=== PATIENT | female | born 1950 | race Caucasian/White ===

== ENCOUNTER 2024-05-10 15:13 | Inpatient (IN) | payer MEDICARE ==
[2024-05-10] MEDS ORDERED: Sodium Chloride 0.9% 10 ML Syringe FLUSH PRN ×2 (15:36)
[2024-05-10] MEDS: Albuterol/Ipratropium 3.0-0.5 MG/3 ML Neb Soln NEB ONE (15:51)
[2024-05-10 15:55] LABS: BASOPHILS PERCENT AUTO 0.2 % (0.0-1.0); EOSINOPHILS PERCENT AUTO 1.6 % (1.0-3.0); HEMATOCRIT 49.6 % (37.0-47.0); HEMOGLOBIN 16.2 g/dL (12.0-16.0); LYMPHOCYTES PERCENT AUTO 25.1 % (20.5-50.1); MEAN CORPUSCULAR HEMOGLOBIN 29.7 pg (27.0-34.0); MEAN CORPUSCULAR HGB CONC 32.7 g/dL (33.0-35.0); MEAN CORPUSCULAR VOLUME 90.8 fL (80-100); MONOCYTES PERCENT AUTO 11.7 % (2-8); NEUTROPHILS PERCENT AUTO 61.4 % (42.2-75.2); PLATELET COUNT,PLT 177 10^3/uL (150-450); RED BLOOD CELL COUNT 5.46 10^6/uL (4.2-5.4); WHITE BLOOD CELL COUNT,WBC 6.3 10^3/uL (5.0-10.0)
[2024-05-10 16:18] LABS: A/G RATIO 1.1; ALANINE AMINOTRANSFERASE,ALT 24 U/L (14-59); ALBUMIN 3.6 g/dL (3.4-5.0); ALKALINE PHOSPHATASE 54 U/L (46-116); ASPARTATE AMNIOTRANSFERASE,AST 16 U/L (15-37); BILIRUBIN TOTAL 0.5 mg/dL (0.2-1.0); BLOOD UREA NITROGEN,BUN 20 mg/dL (7-18); CALCIUM 9.2 mg/dL (8.5-10.1); CARBON DIOXIDE,CO2 30 mmol/L (21-32); CHLORIDE,CL 103 mmol/L (98-107); ESTIMATED GFR 59 mL/min (>=60); GLUCOSE RANDOM 131 mg/dL (70-99); SODIUM,NA 142 mmol/L (136-145)
[2024-05-10 16:59] LABS: INR 1.8 (0.9-1.2); PROTHROMBIN TIME 18.1 SEC (9.0-12.0)
[2024-05-10] MEDS: Albuterol 0.083% 2.5 MG/3 ML Neb Soln NEB ONE (17:14)
[2024-05-10] MEDS ORDERED: Docusate Sodium 100 MG Cap PO PRN (19:23)
[2024-05-10] MEDS ORDERED: Acetaminophen 325 MG Tab PO PRN (19:23)
[2024-05-10 20:19] LABS: INR 1.9 (0.9-1.2); PROTHROMBIN TIME 18.7 SEC (9.0-12.0)
[2024-05-10] MEDS: Azithromycin 250 MG Tab PO SCH ×2 (21:14→21:19)
[2024-05-10] MEDS: methylPREDNISolone Sodium Succinate 40 MG/1 ML SDV IVPUSH SCH (21:14)
[2024-05-10] MEDS: Melatonin 3 MG Tab PO PRN (21:14)
[2024-05-10] MEDS: Warfarin 2 MG Tab PO ONE (21:15)
[2024-05-10] MEDS: Ramipril 5 MG Cap PO SCH (21:15)
[2024-05-11] MEDS: Albuterol/Ipratropium 3.0-0.5 MG/3 ML Neb Soln NEB SCH (00:27)
[2024-05-11] MEDS: Albuterol/Ipratropium 3.0-0.5 MG/3 ML Neb Soln NEB PRN (04:09)
[2024-05-11] MEDS: Warfarin 2 MG Tab PO ONE (14:15)
[2024-05-12 06:50] LABS: INR 3.5 (0.9-1.2); PROTHROMBIN TIME 33.7 SEC (9.0-12.0)
[2024-05-13 07:00] LABS: INR 3.6 (0.9-1.2); PROTHROMBIN TIME 34.4 SEC (9.0-12.0)
[2024-05-13] MEDS ORDERED: [UNRECOGNIZED DRUG - REMARK] PO SCH (14:00)
== END 2024-05-13 13:45 | disposition home or self-care (01) | DRG 189 ==
LOC: DL.ED 15:13 → DL.MS 18:39
PROVIDERS: ADMIT Internal Medicine; ATTEND Internal Medicine
DX: J96.01 Acute respiratory failure with hypoxia (principal); J44.1 Chronic obstructive pulmonary disease with (acute) exacerbation; Z88.8 Allergy status to other drugs, medicaments and biological substances; J98.11 Atelectasis; E78.00 Pure hypercholesterolemia, unspecified; M81.0 Age-related osteoporosis without current pathological fracture; I10 Essential (primary) hypertension; Z86.711 Personal history of pulmonary embolism; Z86.16 Personal history of COVID-19; Z79.899 Other long term (current) drug therapy; Z79.01 Long term (current) use of anticoagulants; Z87.891 Personal history of nicotine dependence
CPT/HCPCS: 36415; 71045; 80053; 84484; 85025; 85379; 85610; 87428; 93005; 99285; A9270 ×2; 93010; 94010; 94640; 99223; 99232; 99239; J2919

== ENCOUNTER 2024-06-18 13:15 | Emergency (ER) | payer MEDICARE ==
[2024-06-18] MEDS: Iopamidol 612 MG/ML 100 ML Bottle IVPUSH ONE (13:24)
[2024-06-18] MEDS ORDERED: Sodium Chloride 0.9% 10 ML Syringe FLUSH PRN ×2 (13:25)
[2024-06-18] MEDS: Iopamidol 755 Mg/ML 100 ML Bottle IVPUSH ONE (13:28)
[2024-06-18 13:46] LABS: BASOPHILS PERCENT AUTO 0.6 % (0.0-1.0); EOSINOPHILS PERCENT AUTO 1.3 % (1.0-3.0); HEMATOCRIT 43.6 % (37.0-47.0); HEMOGLOBIN 14.5 g/dL (12.0-16.0); LYMPHOCYTES PERCENT AUTO 33.5 % (20.5-50.1); MEAN CORPUSCULAR HGB CONC 33.3 g/dL (33.0-35.0); MEAN CORPUSCULAR VOLUME 90.3 fL (80-100); MONOCYTES PERCENT AUTO 7.2 % (2-8); NEUTROPHILS PERCENT AUTO 57.4 % (42.2-75.2); PLATELET COUNT,PLT 209 10^3/uL (150-450); RED BLOOD CELL COUNT 4.83 10^6/uL (4.2-5.4); WHITE BLOOD CELL COUNT,WBC 5.3 10^3/uL (5.0-10.0)
[2024-06-18 14:08] LABS: ALANINE AMINOTRANSFERASE,ALT 20 U/L (14-59); ALBUMIN 3.1 g/dL (3.4-5.0); ALKALINE PHOSPHATASE 46 U/L (46-116); ANION GAP 11.8 mEq/L (7-13); ASPARTATE AMNIOTRANSFERASE,AST 13 U/L (15-37); BILIRUBIN TOTAL 0.6 mg/dL (0.2-1.0); BLOOD UREA NITROGEN,BUN 13 mg/dL (7-18); BUN/CREATININE RATIO 21.7 (No establ ref range); CALCIUM 8.9 mg/dL (8.5-10.1); CARBON DIOXIDE,CO2 30 mmol/L (21-32); CHLORIDE,CL 103 mmol/L (98-107); GLUCOSE RANDOM 100 mg/dL (70-99); POTASSIUM,K 3.8 mmol/L (3.5-5.1); PROTEIN TOTAL,TP 5.9 g/dL (6.4-8.2); SODIUM,NA 141 mmol/L (136-145)
[2024-06-18 14:09] LABS: A/G RATIO 1.11; ESTIMATED GFR 94 mL/min (>=60)
[2024-06-18 14:13] LABS: PROTHROMBIN TIME 10.4 SEC (9.0-12.0)
[2024-06-18] MEDS: Tenecteplase 50 MG Kit IVPUSH ONE (14:31)
== END 2024-06-18 15:34 ==
LOC: DL.ED 13:15
DX: I63.9 Cerebral infarction, unspecified (principal); E78.00 Pure hypercholesterolemia, unspecified; Z79.01 Long term (current) use of anticoagulants; Z79.899 Other long term (current) drug therapy; Z86.16 Personal history of COVID-19
CPT/HCPCS: 36415; 70450; 70496; 70498; 71045; 80053; 82947; 84484; 85025; 85610; 93005; 93010; 96374; 99285; 99291; J3101; Q9967